=== PATIENT | female | born 1955 | race Caucasian/White ===

== ENCOUNTER → 2018-05-25 | Outpatient (CLI) | payer OTHER ==
[~2018-05-25] MED LIST: LIDOCAINE-MPF 2%, 2ML ONE
== END | disposition home or self-care (01) ==
LOC: RAD 09:51
PROVIDERS: ATTEND Internal Medicine Hematology & Oncology
DX: Z45.2 Encounter for adjustment and management of vascular access device (principal); C50.919 Malignant neoplasm of unspecified site of unspecified female breast
CPT/HCPCS: 36569; 76937; 77001; C1751; J3490

== ENCOUNTER 2018-08-12 09:19 | Inpatient (IN) | payer OTHER ==
[~2018-08-12] VITALS: Ht 160 cm; Wt 57.7 kg
[2018-08-12] MEDS ORDERED: ONDANSETRON 2MG/ML, 2ML IVPush ONE ×2 (10:30→11:30)
[2018-08-12] MEDS ORDERED: SODIUM CHLORIDE FLUSH 10ML SYR IVF ONE (10:30)
[2018-08-12] MEDS ORDERED: FAMOTIDINE 20 MG/2 ML IVP ONE (10:30)
[2018-08-12] MEDS ORDERED: SODIUM CHLORIDE 0.9% 1,000ML IVBOLUS ONE (10:30)
[2018-08-12 10:58] LABS: BASOPHILS % (AUTO) 0 % (0-1); EOSINOPHILS % (AUTO) 0 % (1-7); LYMPHOCYTES # (AUTO) 0.36 x10^3/uL (1-3.4); LYMPHOCYTES % (AUTO) 4 % (22-44); MD NO; MEAN CORPUSCULAR HEMOGLOBIN 30.6 pg (27.0-34.8); MEAN CORPUSCULAR HGB CONC 33.7 g/dL (32.4-35.8); MEAN CORPUSCULAR VOLUME 90.6 fL (80-100); MEAN PLATELET VOLUME 8.6 fL (7.4-10.4); MONOCYTES # (AUTO) 0.19 x10^3/uL (0.2-0.8); MONOCYTES % (AUTO) 2 % (2-9); NEUTROPHILS # (AUTO) 8.74 x10^3/uL (1.8-6.8); NEUTROPHILS % (AUTO) 94 % (42-75); PLATELET COUNT 158 x10^3/uL (130-400); RED BLOOD COUNT 3.24 x10^6/uL (3.82-5.3); RED CELL DISTRIBUTION WIDTH 14.1 % (9.6-15.2)
[2018-08-12 11:10] LABS: ALANINE AMINOTRANSFERASE 54 U/L (12-78); ALBUMIN 2.8 g/dL (3.4-5.0); ANION GAP 9 mmol/L (5-15); CALCIUM 8.2 mg/dL (8.5-10.1); CHLORIDE 108 mmol/L (98-107); CREATININE 0.95 mg/dL (0.55-1.02)
[2018-08-12 11:12] LABS: ALKALINE PHOSPHATASE 213 U/L (45-117); BILIRUBIN,TOTAL 0.5 mg/dL (0.2-1.0); TOTAL PROTEIN 6.8 g/dL (6.4-8.2)
[2018-08-12] MEDS ORDERED: FAMOTIDINE 20 MG/2 ML ONE (11:14)
[2018-08-12] MEDS ORDERED: ONDANSETRON 2MG/ML, 2ML ONE (11:14)
[2018-08-12] MEDS ORDERED: OMNIPAQUE 350 MG/ML, 100ML BOTTLE ONE (13:02)
[2018-08-12] MEDS ORDERED: PROMETHAZINE 25 MG/ML, 1ML ONE (13:26)
[2018-08-12] MEDS ORDERED: PROMETHAZINE 25 MG/ML, 1ML IM ONE (13:30)
[2018-08-12] MEDS ORDERED: SODIUM CHLORIDE 0.9% 1,000 ML IV ONE (14:24)
[2018-08-12] MEDS ORDERED: ONDANSETRON 2MG/ML, 2ML IVPush PRN (14:30)
[2018-08-12] MEDS ORDERED: SODIUM CHLORIDE 0.9% 1,000 ML IV SCH (15:04)
[2018-08-12] MEDS ORDERED: FENT-58 TD (15:20)
[2018-08-12] MEDS ORDERED: ENALAPRILAT 1.25 MG/ML, 2ML IVPush PRN (15:30)
[2018-08-12] MEDS ORDERED: HYDROcodone/APAP 5/325 TABLET PO PRN (15:30)
[2018-08-12] MEDS ORDERED: LABETALOL 5MG/ML, 20ML IVPush PRN (15:30)
[2018-08-12] MEDS ORDERED: DOCUSATE 100 MG CAPSULE PO PRN (15:30)
[2018-08-12] MEDS ORDERED: BISACODYL 10 MG SUPP PR PRN (15:30)
[2018-08-12] MEDS ORDERED: morphine SULFATE 10 MG/ML, 1ML IVPush PRN (15:30)
[2018-08-12] MEDS ORDERED: LIDODERM 5% PATCH TD PRN (15:30)
[2018-08-12] MEDS ORDERED: ACETAMINOPHEN 325 MG TABLET PO PRN (15:30)
[2018-08-12] MEDS ORDERED: ONDANSETRON ODT 4 MG PO PRN (15:30)
[2018-08-12 15:40] LABS: IRON LEVEL 99 mcg/dL (50-170)
[2018-08-12 15:42] LABS: % IRON SATURATION 40 % (20-55); TOTAL IRON BINDING CAPACITY 245 mcg/dL (250-450)
[2018-08-12 15:57] VITALS: BP 157/77
[2018-08-12] MEDS ORDERED: UBID100C41 PO (17:34)
[2018-08-12] MEDS ORDERED: [UNRECOGNIZED DRUG - OTHER] PO (17:37)
[2018-08-12] MEDS ORDERED: [UNRECOGNIZED DRUG - OTHER] PO (17:39)
[2018-08-12] MEDS ORDERED: ASCORBIC ACID PO (17:41)
[2018-08-12] MEDS ORDERED: [UNRECOGNIZED DRUG - OTHER] PO (17:41)
[2018-08-12] MEDS ORDERED: [UNRECOGNIZED DRUG - CODE] PO (17:43)
[2018-08-12] MEDS ORDERED: [UNRECOGNIZED DRUG - OTHER] PO (17:45)
[2018-08-12] MEDS ORDERED: [UNRECOGNIZED DRUG - OTHER] PO (17:45)
[2018-08-12] MEDS ORDERED: C STATIN PO (17:47)
[2018-08-12] MEDS ORDERED: [UNRECOGNIZED DRUG - OTHER] PO (17:47)
[2018-08-12] MEDS ORDERED: [UNRECOGNIZED DRUG - CODE] PO (17:49)
[2018-08-12] MEDS ORDERED: [UNRECOGNIZED DRUG - CODE] PO (17:50)
[2018-08-12] MEDS ORDERED: [UNRECOGNIZED DRUG - OTHER] PO (17:52)
[2018-08-12] MEDS ORDERED: [UNRECOGNIZED DRUG - OTHER] PO (17:54)
[2018-08-12] MEDS ORDERED: AHCC PO (17:56)
[2018-08-12] MEDS ORDERED: [UNRECOGNIZED DRUG - OTHER] PO (17:57)
[2018-08-12] MEDS ORDERED: APIGENIN PO (17:58)
[2018-08-12] MEDS ORDERED: [UNRECOGNIZED DRUG - OTHER] PO (17:59)
[2018-08-12] MEDS: ENOXAPARIN 40 MG/0.4 ML SQ SCH ×2 (19:30→21:25)
[2018-08-12] MEDS: KETOROLAC 30 MG/1 ML IV PRN (21:24)
[2018-08-12 21:30] VITALS: BP 138/73
[2018-08-13 01:29] VITALS: BP 115/61
[2018-08-13] MEDS: PROMETHAZINE 25 MG/ML, 1ML IM PRN (02:43)
[2018-08-13] MEDS: ONDANSETRON 2MG/ML, 2ML IVPush PRN ×3 (05:07→16:46)
[2018-08-13 05:23] LABS: BASOPHILS # (AUTO) 0.02 x10^3/uL (0-0.1); BASOPHILS % (AUTO) 0 % (0-1); EOSINOPHILS % (AUTO) 0 % (1-7); LYMPHOCYTES # (AUTO) 0.61 x10^3/uL (1-3.4); LYMPHOCYTES % (AUTO) 6 % (22-44); MD NO; MEAN CORPUSCULAR HEMOGLOBIN 30.2 pg (27.0-34.8); MEAN CORPUSCULAR HGB CONC 33.4 g/dL (32.4-35.8); MEAN CORPUSCULAR VOLUME 90.3 fL (80-100); MEAN PLATELET VOLUME 8.8 fL (7.4-10.4); MONOCYTES # (AUTO) 0.08 x10^3/uL (0.2-0.8); MONOCYTES % (AUTO) 1 % (2-9); NEUTROPHILS # (AUTO) 9.09 x10^3/uL (1.8-6.8); NEUTROPHILS % (AUTO) 93 % (42-75); PLATELET COUNT 137 x10^3/uL (130-400); RED BLOOD COUNT 2.96 x10^6/uL (3.82-5.3); RED CELL DISTRIBUTION WIDTH 14.2 % (9.6-15.2)
[2018-08-13 05:28] LABS: ALANINE AMINOTRANSFERASE 68 U/L (12-78); ALBUMIN 2.4 g/dL (3.4-5.0); ANION GAP 8 mmol/L (5-15); CHLORIDE 109 mmol/L (98-107)
[2018-08-13 05:31] LABS: ALKALINE PHOSPHATASE 181 U/L (45-117); BILIRUBIN,TOTAL 0.5 mg/dL (0.2-1.0); TOTAL PROTEIN 6.1 g/dL (6.4-8.2)
[2018-08-13] MEDS: SODIUM CHLORIDE 0.9% 1,000 ML IV SCH ×2 (06:06→16:47)
[2018-08-13 07:25] VITALS: BP 128/69
[2018-08-13] MEDS: FUROSEMIDE 20 MG TABLET PO SCH (09:32)
[2018-08-13] MEDS: SENNA/DOCUSATE TABLET PO SCH (09:32)
[2018-08-13] MEDS: KETOROLAC 30 MG/1 ML IV PRN ×2 (09:32→16:46)
[2018-08-13] MEDS: SPIRONOLACTONE 25 MG TABLET PO SCH (09:33)
[2018-08-13 10:51] LABS: CULTURE INDICATED? NO; MICROSCOPIC NOT IND
[2018-08-13] MEDS: ENOXAPARIN 40 MG/0.4 ML SQ SCH (15:30)
[2018-08-13 17:15] VITALS: BP 108/57
[2018-08-13 19:44] VITALS: BP 117/69
[2018-08-14] MEDS: ONDANSETRON 2MG/ML, 2ML IVPush PRN ×4 (00:11→19:56)
[2018-08-14] MEDS: KETOROLAC 30 MG/1 ML IV PRN ×4 (00:12→19:56)
[2018-08-14 01:29] VITALS: BP 112/61
[2018-08-14] MEDS: SODIUM CHLORIDE 0.9% 1,000 ML IV SCH ×3 (02:23→21:49)
[2018-08-14 04:26] LABS: BASOPHILS # (AUTO) 0.01 x10^3/uL (0-0.1); BASOPHILS % (AUTO) 0 % (0-1); EOSINOPHILS # (AUTO) 0.14 x10^3/uL (0-0.4); EOSINOPHILS % (AUTO) 2 % (1-7); LYMPHOCYTES # (AUTO) 0.66 x10^3/uL (1-3.4); LYMPHOCYTES % (AUTO) 9 % (22-44); MD NO; MEAN CORPUSCULAR HEMOGLOBIN 30.4 pg (27.0-34.8); MEAN CORPUSCULAR HGB CONC 33.6 g/dL (32.4-35.8); MEAN CORPUSCULAR VOLUME 90.4 fL (80-100); MEAN PLATELET VOLUME 8.4 fL (7.4-10.4); MONOCYTES # (AUTO) 0.11 x10^3/uL (0.2-0.8); MONOCYTES % (AUTO) 2 % (2-9); NEUTROPHILS # (AUTO) 6.61 x10^3/uL (1.8-6.8); NEUTROPHILS % (AUTO) 88 % (42-75); PLATELET COUNT 161 x10^3/uL (130-400); RED BLOOD COUNT 3.01 x10^6/uL (3.82-5.3); RED CELL DISTRIBUTION WIDTH 13.8 % (9.6-15.2)
[2018-08-14 07:30] VITALS: BP 128/49
[2018-08-14] MEDS: FUROSEMIDE 20 MG TABLET PO SCH (07:53)
[2018-08-14] MEDS: SENNA/DOCUSATE TABLET PO SCH (07:53)
[2018-08-14] MEDS: SPIRONOLACTONE 25 MG TABLET PO SCH (07:53)
[2018-08-14] MEDS ORDERED: FENTANYL REMOVE PATCH NOTE XX SCH (08:59)
[2018-08-14] MEDS ORDERED: FENTANYL 25 MCG PATCH TD SCH (09:00)
[2018-08-14] MEDS ORDERED: FENTANYL 12 MCG PATCH ONE (10:33)
[2018-08-14] MEDS: FLUTICASONE NASAL SPRAY 16GM NAS SCH ×2 (10:35→19:59)
[2018-08-14] MEDS ORDERED: FENTANYL 12 MCG PATCH TD SCH (11:00)
[2018-08-14] MEDS: PANTOPROZOLE 40MG TABLET PO SCH ×2 (11:48→21:49)
[2018-08-14] MEDS: ENOXAPARIN 40 MG/0.4 ML SQ SCH ×2 (14:09→14:59)
[2018-08-14 14:54] VITALS: BP 127/68
[2018-08-14] MEDS: PROMETHAZINE 25 MG/ML, 1ML IM PRN (18:18)
[2018-08-14 18:50] VITALS: BP 114/69
[2018-08-15 00:29] VITALS: BP 111/61
[2018-08-15] MEDS: ONDANSETRON 2MG/ML, 2ML IVPush PRN ×4 (02:05→21:22)
[2018-08-15] MEDS: KETOROLAC 30 MG/1 ML IV PRN ×4 (02:05→21:22)
[2018-08-15 07:24] VITALS: BP 145/77
[2018-08-15] MEDS: SODIUM CHLORIDE 0.9% 1,000 ML IV SCH ×2 (07:31→17:14)
[2018-08-15] MEDS: FUROSEMIDE 20 MG TABLET PO SCH (07:41)
[2018-08-15] MEDS: FLUTICASONE NASAL SPRAY 16GM NAS SCH ×2 (07:41→21:23)
[2018-08-15] MEDS: SPIRONOLACTONE 25 MG TABLET PO SCH (07:42)
[2018-08-15] MEDS: SENNA/DOCUSATE TABLET PO SCH (07:42)
[2018-08-15] MEDS: PANTOPROZOLE 40MG TABLET PO SCH ×2 (07:42→21:22)
[2018-08-15] MEDS: METOCLOPRAMIDE 10MG TABLET PO SCH ×2 (11:02→16:19)
[2018-08-15] MEDS ORDERED: CALCIUM CARBONATE 500 MG TAB.CHEW ONE (12:25)
[2018-08-15] MEDS ORDERED: CALCIUM CARBONATE 500 MG TAB.CHEW PO PRN (12:30)
[2018-08-15 13:28] VITALS: BP 138/76
[2018-08-15] MEDS: ENOXAPARIN 40 MG/0.4 ML SQ SCH (15:22)
[2018-08-15] MEDS ORDERED: DIPHENHYDRAMINE 25 MG CAPSULE PO PRN (16:00)
[2018-08-15] MEDS: TRIAMCINOLONE CRM 0.1%, 15GM TP SCH ×2 (16:19→21:23)
[2018-08-15 19:26] VITALS: BP 120/64
[2018-08-16 00:28] VITALS: BP 124/72
[2018-08-16] MEDS: SODIUM CHLORIDE 0.9% 1,000 ML IV SCH ×2 (02:49→15:51)
[2018-08-16] MEDS: KETOROLAC 30 MG/1 ML IV PRN (03:17)
[2018-08-16] MEDS: ONDANSETRON 2MG/ML, 2ML IVPush PRN (03:17)
[2018-08-16 04:53] LABS: ALBUMIN 2.2 g/dL (3.4-5.0); ANION GAP 9 mmol/L (5-15); CALCIUM 7.8 mg/dL (8.5-10.1); CHLORIDE 110 mmol/L (98-107)
[2018-08-16 04:55] LABS: MEAN CORPUSCULAR HEMOGLOBIN 30.2 pg (27.0-34.8); MEAN CORPUSCULAR HGB CONC 33.9 g/dL (32.4-35.8); MEAN CORPUSCULAR VOLUME 89.2 fL (80-100); PLATELET COUNT 160 x10^3/uL (130-400); RED BLOOD COUNT 3.32 x10^6/uL (3.82-5.3)
[2018-08-16 05:00] LABS: ALANINE AMINOTRANSFERASE 71 U/L (12-78); ALKALINE PHOSPHATASE 200 U/L (45-117); BILIRUBIN,TOTAL 0.3 mg/dL (0.2-1.0); CREATININE 1.13 mg/dL (0.55-1.02); PREALBUMIN 7.2 mg/dL (20.0-40.0)
[2018-08-16 05:09] LABS: BASOPHILS # (AUTO) 0.01 x10^3/uL (0-0.1); BASOPHILS % (AUTO) 0 % (0-1); EOSINOPHILS # (AUTO) 0.05 x10^3/uL (0-0.4); EOSINOPHILS % (AUTO) 1 % (1-7); LYMPHOCYTES # (AUTO) 0.48 x10^3/uL (1-3.4); LYMPHOCYTES % (AUTO) 14 % (22-44); MD SCAN; MONOCYTES # (AUTO) 0.23 x10^3/uL (0.2-0.8); MONOCYTES % (AUTO) 7 % (2-9); NEUTROPHILS # (AUTO) 2.61 x10^3/uL (1.8-6.8); NEUTROPHILS % (AUTO) 77 % (42-75)
[2018-08-16] MEDS ORDERED: MAGNESIUM SULFATE PMX 2GM/50ML 50 ML IV ONE (07:00)
[2018-08-16] MEDS ORDERED: POTASSIUM CHLORIDE 20 MEQ TAB.ER.PRT PO ONE (07:00)
[2018-08-16 07:16] VITALS: BP 146/77
[2018-08-16] MEDS: PANTOPROZOLE 40MG TABLET PO SCH (08:47)
[2018-08-16] MEDS: FUROSEMIDE 20 MG TABLET PO SCH (08:48)
[2018-08-16] MEDS: SPIRONOLACTONE 25 MG TABLET PO SCH (08:48)
[2018-08-16] MEDS: SENNA/DOCUSATE TABLET PO SCH (08:48)
[2018-08-16] MEDS: TRIAMCINOLONE CRM 0.1%, 15GM TP SCH ×2 (08:48→15:51)
[2018-08-16] MEDS: FLUTICASONE NASAL SPRAY 16GM NAS SCH (08:50)
[2018-08-16] MEDS ORDERED: LORazepam INTENSOL 2 MG/ML PO PRN (10:00)
[2018-08-16] MEDS ORDERED: SODIUM CHLORIDE 0.9% 1,000ML IVBOLUS PRN (10:00)
[2018-08-16] MEDS: METOCLOPRAMIDE 10MG TABLET PO SCH ×2 (10:13→15:50)
[2018-08-16 13:06] VITALS: BP 149/86
[2018-08-16] MEDS ORDERED: METO10TA2 PO (14:59)
[2018-08-16] MEDS ORDERED: TRIA15CR3 TP (14:59)
[2018-08-16] MEDS ORDERED: FENT1PAT74 TD (14:59)
[2018-08-16] MEDS ORDERED: ONDA4TAB13 PO (14:59)
[2018-08-16] MEDS ORDERED: PANT40TA5 PO (14:59)
[2018-08-16] MEDS: ENOXAPARIN 40 MG/0.4 ML SQ SCH (15:50)
[2018-08-17] MEDS ORDERED: FENTANYL 25 MCG PATCH TD SCH (09:00)
[2018-08-17] MEDS ORDERED: FENTANYL 12 MCG PATCH TD SCH (09:00)
== END 2018-08-16 16:00 | disposition home or self-care (01) | DRG 392 ==
LOC: ED 10:29 → EDIP 14:24 → 3NE 14:57 → 3NW 22:26
PROVIDERS: ADMIT Internal Medicine; ATTEND Internal Medicine
DX: R11.2 Nausea with vomiting, unspecified (principal); J90 Pleural effusion, not elsewhere classified; J98.11 Atelectasis; N13.30 Unspecified hydronephrosis; C79.51 Secondary malignant neoplasm of bone; C78.7 Secondary malignant neoplasm of liver and intrahepatic bile duct; C79.89 Secondary malignant neoplasm of other specified sites; N17.9 Acute kidney failure, unspecified; D64.9 Anemia, unspecified; E86.0 Dehydration; E87.8 Other disorders of electrolyte and fluid balance, not elsewhere classified; G89.3 Neoplasm related pain (acute) (chronic); I70.0 Atherosclerosis of aorta; K29.70 Gastritis, unspecified, without bleeding; K31.84 Gastroparesis; L27.0 Generalized skin eruption due to drugs and medicaments taken internally; M81.0 Age-related osteoporosis without current pathological fracture; R13.10 Dysphagia, unspecified; R62.7 Adult failure to thrive; R63.3 Feeding difficulties; Z66 Do not resuscitate; Z80.3 Family history of malignant neoplasm of breast; Z80.8 Family history of malignant neoplasm of other organs or systems; Z82.49 Family history of ischemic heart disease and other diseases of the circulatory system; Z85.3 Personal history of malignant neoplasm of breast; C50.919 Malignant neoplasm of unspecified site of unspecified female breast
CPT/HCPCS: 36415; 74022; 74241; 99285; J3490; 74177; 80053; 81003; 83540; 83550; 83690; 83735; 84100; 84134; 85025; 96361; 96372; 96374; 96375; G0378; J1650; J1885; J2405; J2550; Q9967; J3475; J7030; Q0163

== ENCOUNTER 2018-08-18 18:00 | Inpatient (IN) | payer OTHER ==
[~2018-08-18] VITALS: Ht 160 cm; Wt 56.6 kg
[~2018-08-18 18:00] MED LIST changes: +AHCC PO; +APIGENIN PO; +ASCORBIC ACID PO; +C STATIN PO; +FENT-58 TD; +FENT1PAT74 TD; -LIDOCAINE-MPF 2%, 2ML ONE; +METO10TA2 PO; +ONDA4TAB13 PO; +PANT40TA5 PO; +TRIA15CR3 TP; +UBID100C41 PO; +[UNRECOGNIZED DRUG - CODE] PO; +[UNRECOGNIZED DRUG - CODE] PO; +[UNRECOGNIZED DRUG - CODE] PO; +[UNRECOGNIZED DRUG - OTHER] PO; +[UNRECOGNIZED DRUG - OTHER] PO; +[UNRECOGNIZED DRUG - OTHER] PO; +[UNRECOGNIZED DRUG - OTHER] PO; +[UNRECOGNIZED DRUG - OTHER] PO; +[UNRECOGNIZED DRUG - OTHER] PO; +[UNRECOGNIZED DRUG - OTHER] PO; +[UNRECOGNIZED DRUG - OTHER] PO; +[UNRECOGNIZED DRUG - OTHER] PO; +[UNRECOGNIZED DRUG - OTHER] PO
[2018-08-18] MEDS ORDERED: ONDANSETRON ODT 4 MG PO ONE (18:30)
[2018-08-18] MEDS ORDERED: SODIUM CHLORIDE 0.9% 1,000 ML IV ONE (18:54)
[2018-08-18] MEDS ORDERED: MORPHINE SULFATE 4 MG/ML, 1ML IVPush PRN (19:00)
[2018-08-18] MEDS ORDERED: METOCLOPRAMIDE 5 MG/ML, 2ML IVPush ONE (19:00)
[2018-08-18] MEDS ORDERED: PROMETHAZINE 25 MG/ML, 1ML IM ONE (19:00)
[2018-08-18] MEDS ORDERED: ONDANSETRON 2MG/ML, 2ML IVPush ONE (19:00)
[2018-08-18 19:06] LABS: BASOPHILS # (AUTO) 0.01 x10^3/uL (0-0.1); BASOPHILS % (AUTO) 0 % (0-1); EOSINOPHILS # (AUTO) 0.13 x10^3/uL (0-0.4); EOSINOPHILS % (AUTO) 1 % (1-7); LYMPHOCYTES % (AUTO) 7 % (22-44); MD NO; MEAN CORPUSCULAR HEMOGLOBIN 30.7 pg (27.0-34.8); MEAN CORPUSCULAR HGB CONC 33.8 g/dL (32.4-35.8); MEAN CORPUSCULAR VOLUME 90.7 fL (80-100); MEAN PLATELET VOLUME 7.6 fL (7.4-10.4); MONOCYTES # (AUTO) 0.84 x10^3/uL (0.2-0.8); MONOCYTES % (AUTO) 9 % (2-9); NEUTROPHILS # (AUTO) 7.41 x10^3/uL (1.8-6.8); NEUTROPHILS % (AUTO) 83 % (42-75); PLATELET COUNT 163 x10^3/uL (130-400); RED BLOOD COUNT 3.28 x10^6/uL (3.82-5.3); RED CELL DISTRIBUTION WIDTH 14.1 % (9.6-15.2)
[2018-08-18 19:07] LABS: ALANINE AMINOTRANSFERASE 100 U/L (12-78); ALBUMIN 2.8 g/dL (3.4-5.0); ANION GAP 12 mmol/L (5-15); CALCIUM 8.1 mg/dL (8.5-10.1); CHLORIDE 104 mmol/L (98-107); CREATININE 0.86 mg/dL (0.55-1.02)
[2018-08-18] MEDS ORDERED: PROMETHAZINE 25 MG/ML, 1ML ONE (19:08)
[2018-08-18] MEDS ORDERED: ONDANSETRON 2MG/ML, 2ML ONE (19:08)
[2018-08-18 19:10] LABS: ALKALINE PHOSPHATASE 225 U/L (45-117); BILIRUBIN,TOTAL 0.6 mg/dL (0.2-1.0); TOTAL PROTEIN 6.7 g/dL (6.4-8.2)
[2018-08-18 20:50] VITALS: BP 161/91
[2018-08-18] MEDS ORDERED: TPN PER PHARMACY MC PRN ×2 (22:00→22:30)
[2018-08-18] MEDS: HEPARIN 5,000 UNITS/ML, 1ML SQ SCH (22:00)
[2018-08-18] MEDS ORDERED: GABAPENTIN 300 MG CAPSULE PO PRN (22:00)
[2018-08-18] MEDS ORDERED: hydrALAzine 20 MG/ML, 1ML IVPush PRN (22:00)
[2018-08-18] MEDS ORDERED: PROMETHAZINE 25 MG/ML, 1ML IM PRN (22:00)
[2018-08-18] MEDS ORDERED: LABETALOL 5MG/ML, 20ML IVPush PRN (22:00)
[2018-08-18] MEDS ORDERED: morphine SULFATE 10 MG/ML, 1ML IVPush PRN (22:00)
[2018-08-18] MEDS ORDERED: METOCLOPRAMIDE 5 MG/ML, 2ML IVPush PRN (22:00)
[2018-08-18] MEDS ORDERED: BISACODYL 10 MG SUPP PR PRN (22:00)
[2018-08-18] MEDS ORDERED: POLYETHYLENE GLYCOL 17 GM PACKET PO PRN (22:00)
[2018-08-18] MEDS ORDERED: CYCLOBENZAPRINE 10 MG TABLET PO PRN (22:00)
[2018-08-18] MEDS: D5%-0.9% NACL+KCL 20MEQ 1,000 ML IV SCH (22:18)
[2018-08-18 22:32] LABS: MICROSCOPIC INDICATED
[2018-08-18] MEDS ORDERED: FURO40TA6 PO (22:42)
[2018-08-18] MEDS ORDERED: SPIR100T PO (22:42)
[2018-08-18] MEDS ORDERED: POTA99TA24 PO (22:42)
[2018-08-18 22:43] LABS: CULTURE INDICATED? NO
[2018-08-18 22:48] LABS: FREE T4 (FREE THYROXINE) 1.15 ng/dL (0.76-1.46); THYROID STIMULATING HORMONE 3.08 mIU/L (0.358-3.740)
[2018-08-18] MEDS ORDERED: MAGN100P PO (22:48)
[2018-08-18] MEDS ORDERED: FLUT9.9S NS (22:48)
[2018-08-18 22:58] LABS: HEMOGLOBIN A1C 5.4 % (4.2-6.3)
[2018-08-19 03:30] VITALS: BP 156/81
[2018-08-19] MEDS: ONDANSETRON 2MG/ML, 2ML IVPush PRN (04:48)
[2018-08-19] MEDS: OXYcodone IR 5MG TABLET PO PRN ×3 (04:49→21:31)
[2018-08-19 04:53] LABS: BASOPHILS % (AUTO) 0 % (0-1); EOSINOPHILS # (AUTO) 0.26 x10^3/uL (0-0.4); EOSINOPHILS % (AUTO) 4 % (1-7); LYMPHOCYTES # (AUTO) 0.63 x10^3/uL (1-3.4); LYMPHOCYTES % (AUTO) 9 % (22-44); MD NO; MEAN CORPUSCULAR HEMOGLOBIN 30.6 pg (27.0-34.8); MEAN CORPUSCULAR HGB CONC 33.9 g/dL (32.4-35.8); MEAN CORPUSCULAR VOLUME 90.2 fL (80-100); MEAN PLATELET VOLUME 7.8 fL (7.4-10.4); MONOCYTES # (AUTO) 0.94 x10^3/uL (0.2-0.8); MONOCYTES % (AUTO) 14 % (2-9); NEUTROPHILS # (AUTO) 5.16 x10^3/uL (1.8-6.8); NEUTROPHILS % (AUTO) 74 % (42-75); PLATELET COUNT 156 x10^3/uL (130-400); RED BLOOD COUNT 2.97 x10^6/uL (3.82-5.3)
[2018-08-19 05:01] LABS: ALANINE AMINOTRANSFERASE 87 U/L (12-78); ALBUMIN 2.4 g/dL (3.4-5.0); ANION GAP 8 mmol/L (5-15); CHLORIDE 108 mmol/L (98-107)
[2018-08-19 05:04] LABS: ALKALINE PHOSPHATASE 208 U/L (45-117); BILIRUBIN,TOTAL 0.4 mg/dL (0.2-1.0); CHOL/HDL RATIO 2.4; CHOLESTEROL, TOTAL 77 mg/dL (140-239); CREATININE 0.97 mg/dL (0.55-1.02); HDL CHOL % 42 % (28-40); HDL CHOLESTEROL (DIRECT) 32 mg/dL (40-60); LDL CHOLESTEROL,CALCULATED 32 mg/dL (54-169); TOTAL PROTEIN 5.8 g/dL (6.4-8.2); TRIGLYCERIDES 65 mg/dL (50-200); VLDL CHOLESTEROL 13 mg/dL (0-25)
[2018-08-19] MEDS: HEPARIN 5,000 UNITS/ML, 1ML SQ SCH ×3 (06:00→20:07)
[2018-08-19 06:50] VITALS: BP 149/77
[2018-08-19] MEDS: PANTOPRAZOLE 40 MG IV IVPush SCH (07:15)
[2018-08-19] MEDS: D5%-0.9% NACL+KCL 20MEQ 1,000 ML IV SCH (07:15)
[2018-08-19] MEDS: SENNA/DOCUSATE TABLET PO SCH (07:18)
[2018-08-19] MEDS ORDERED: TPN PER PHARMACY MC PRN (08:00)
[2018-08-19] MEDS ORDERED: FENTANYL 12 MCG PATCH TD SCH (09:30)
[2018-08-19] MEDS: SPIRONOLACTONE 100 MG TABLET PO SCH (10:08)
[2018-08-19] MEDS: INSULIN LISPRO 100 UNITS/ML, PEN SQ-INSULIN SCH ×3 (10:09→20:07)
[2018-08-19] MEDS: TRIAMCINOLONE CRM 0.1%, 15GM TP SCH ×3 (10:09→20:07)
[2018-08-19] MEDS: MAGNESIUM CITRATE 100 MG PO SCH ×2 (10:10→10:18)
[2018-08-19] MEDS: POTASSIUM GLUCONATE PO SCH ×2 (10:10→10:18)
[2018-08-19] MEDS ORDERED: FUROSEMIDE 20 MG TABLET PO SCH (11:00)
[2018-08-19 13:32] VITALS: BP 144/89
[2018-08-19] MEDS: PROMETHAZINE 25MG TABLET PO PRN (14:39)
[2018-08-19] MEDS ORDERED: DEXTROSE 50%, 50ML SYRINGE IVPush PRN (17:00)
[2018-08-19] MEDS ORDERED: FILTER, DISP 1.2 MICRON FOR TPN/PVN IV PRN (17:00)
[2018-08-19] MEDS ORDERED: DEXTROSE 10% 500 ML IV PRN (17:00)
[2018-08-19] MEDS ORDERED: AMINO ACID 10% 750 ML, DEXTROSE 70% 350 ML, FAT EMUL/SMOF TPN 200 ML, STERILE WATER 1,0... IV SCH (17:00)
[2018-08-19] MEDS ORDERED: D5%-0.45% NACL 1,000 ML IV PRN (17:00)
[2018-08-19 19:06] VITALS: BP 157/88
[2018-08-20 00:44] VITALS: BP 162/94
[2018-08-20 01:45] VITALS: BP 136/85
[2018-08-20] MEDS: ONDANSETRON 2MG/ML, 2ML IVPush PRN ×3 (01:54→21:58)
[2018-08-20] MEDS: HEPARIN 5,000 UNITS/ML, 1ML SQ SCH ×3 (05:42→21:51)
[2018-08-20] MEDS: PROMETHAZINE 25MG TABLET PO PRN ×3 (05:54→20:52)
[2018-08-20 05:56] LABS: MEAN CORPUSCULAR HEMOGLOBIN 29.9 pg (27.0-34.8); MEAN CORPUSCULAR HGB CONC 33.1 g/dL (32.4-35.8); MEAN CORPUSCULAR VOLUME 90.4 fL (80-100); MEAN PLATELET VOLUME 8.4 fL (7.4-10.4); PLATELET COUNT 151 x10^3/uL (130-400); RED BLOOD COUNT 3.08 x10^6/uL (3.82-5.3); RED CELL DISTRIBUTION WIDTH 14.3 % (9.6-15.2)
[2018-08-20 06:01] LABS: CHLORIDE 104 mmol/L (98-107)
[2018-08-20 06:23] LABS: ALANINE AMINOTRANSFERASE 72 U/L (12-78); ALBUMIN 2.2 g/dL (3.4-5.0); ALKALINE PHOSPHATASE 239 U/L (45-117); ANION GAP 9 mmol/L (5-15); BILIRUBIN,TOTAL 0.3 mg/dL (0.2-1.0); CALCIUM 7.8 mg/dL (8.5-10.1); CREATININE 0.93 mg/dL (0.55-1.02); PREALBUMIN 6.6 mg/dL (20.0-40.0); TOTAL PROTEIN 5.6 g/dL (6.4-8.2)
[2018-08-20 06:53] LABS: MD YES
[2018-08-20 06:55] LABS: <PLATELET ESTIMATE> ADEQUATE; <PLT MORPHOLOGY> NORMAL PLT MORPH; ANISOCYTOSIS 1+; BAND#(MANUAL) 0.08 x10^3/uL; BANDS%(MANUAL) 1 % (0-7); EOS% (MANUAL) 4 % (1-7); LYMPH#(MANUAL) 0.68 x10^3/uL (1-3.4); LYMPHS% (MANUAL) 9 % (22-44); MONOS#(MANUAL) 0.98 x10^3/uL (0.3-2.7); MONOS% (MANUAL) 13 % (2-9); NRBC % (MANUAL) 2 % (0-1); POLYCHROMASIA 1+; SEG#(MANUAL) 5.48 x10^3/uL (1.8-6.8); SEGS% (MANUAL) 73 % (42-75)
[2018-08-20] MEDS: INSULIN LISPRO 100 UNITS/ML, PEN SQ-INSULIN SCH ×4 (07:21→21:00)
[2018-08-20] MEDS ORDERED: METOCLOPRAMIDE 5 MG/ML, 2ML IVPush PRN (08:00)
[2018-08-20] MEDS: SENNA/DOCUSATE TABLET PO SCH (08:06)
[2018-08-20] MEDS: SPIRONOLACTONE 100 MG TABLET PO SCH (08:06)
[2018-08-20] MEDS: PANTOPRAZOLE 40 MG IV IVPush SCH (08:06)
[2018-08-20] MEDS: FUROSEMIDE 20 MG/2 ML IV SCH (08:06)
[2018-08-20] MEDS: TRIAMCINOLONE CRM 0.1%, 15GM TP SCH ×3 (08:08→21:51)
[2018-08-20 08:11] VITALS: BP 168/98
[2018-08-20] MEDS ORDERED: FENTANYL 25 MCG PATCH TD SCH (09:00)
[2018-08-20] MEDS ORDERED: FENTANYL 12 MCG PATCH TD SCH (09:00)
[2018-08-20 13:33] VITALS: BP 154/85
[2018-08-20] MEDS: ONDANSETRON ODT 4 MG PO PRN (14:59)
[2018-08-20] MEDS ORDERED: DIPHENHYDRAMINE 25 MG CAPSULE ONE (15:54)
[2018-08-20] MEDS ORDERED: AMINO ACID 10% 750 ML, DEXTROSE 70% 350 ML, FAT EMUL/SMOF TPN 200 ML, STERILE WATER 1,0... IV SCH (17:00)
[2018-08-20] MEDS ORDERED: DIPHENHYDRAMINE 25 MG CAPSULE PO ONE (17:00)
[2018-08-20] MEDS ORDERED: FILTER, DISP 1.2 MICRON FOR TPN/PVN IV PRN (17:00)
[2018-08-20 20:16] VITALS: BP 167/95
[2018-08-20] MEDS ORDERED: DEXAMETHASONE 4 MG/ML, 1ML IVPush ONE (23:00)
[2018-08-20 23:02] VITALS: BP 146/82
[2018-08-21 02:16] VITALS: BP 162/95
[2018-08-21] MEDS: HEPARIN 5,000 UNITS/ML, 1ML SQ SCH ×2 (04:34→14:00)
[2018-08-21] MEDS: ONDANSETRON 2MG/ML, 2ML IVPush PRN ×2 (04:34→12:25)
[2018-08-21 05:09] LABS: BASOPHILS % (AUTO) 0 % (0-1); EOSINOPHILS # (AUTO) 0.17 x10^3/uL (0-0.4); EOSINOPHILS % (AUTO) 2 % (1-7); LYMPHOCYTES % (AUTO) 7 % (22-44); MD NO; MEAN CORPUSCULAR HEMOGLOBIN 30.4 pg (27.0-34.8); MEAN CORPUSCULAR HGB CONC 33.4 g/dL (32.4-35.8); MEAN PLATELET VOLUME 8.6 fL (7.4-10.4); MONOCYTES # (AUTO) 0.97 x10^3/uL (0.2-0.8); MONOCYTES % (AUTO) 10 % (2-9); NEUTROPHILS # (AUTO) 8.28 x10^3/uL (1.8-6.8); NEUTROPHILS % (AUTO) 82 % (42-75); PLATELET COUNT 172 x10^3/uL (130-400); RED BLOOD COUNT 3.46 x10^6/uL (3.82-5.3); RED CELL DISTRIBUTION WIDTH 14.7 % (9.6-15.2)
[2018-08-21 05:19] LABS: ALANINE AMINOTRANSFERASE 66 U/L (12-78); ALBUMIN 2.4 g/dL (3.4-5.0); ANION GAP 7 mmol/L (5-15); CALCIUM 7.5 mg/dL (8.5-10.1); CHLORIDE 104 mmol/L (98-107)
[2018-08-21 05:21] LABS: ALKALINE PHOSPHATASE 289 U/L (45-117); BILIRUBIN,TOTAL 0.5 mg/dL (0.2-1.0); TOTAL PROTEIN 6.4 g/dL (6.4-8.2)
[2018-08-21 07:17] VITALS: BP 156/82
[2018-08-21] MEDS: INSULIN LISPRO 100 UNITS/ML, PEN SQ-INSULIN SCH ×3 (07:36→16:00)
[2018-08-21] MEDS ORDERED: PROCHLORPERAZINE 5 MG TABLET PO PRN (08:00)
[2018-08-21] MEDS ORDERED: PROCHLORPERAZINE 10MG TABLET ONE (08:57)
[2018-08-21] MEDS: SENNA/DOCUSATE TABLET PO SCH (09:02)
[2018-08-21] MEDS: TRIAMCINOLONE CRM 0.1%, 15GM TP SCH ×2 (09:02→16:10)
[2018-08-21] MEDS: SPIRONOLACTONE 100 MG TABLET PO SCH (09:03)
[2018-08-21] MEDS: FUROSEMIDE 20 MG/2 ML IV SCH (09:03)
[2018-08-21] MEDS: PANTOPRAZOLE 40 MG IV IVPush SCH (09:03)
[2018-08-21] MEDS ORDERED: GADOBUTROL 7.5 MMOL/7.5 ML PFS ONE (11:58)
[2018-08-21 12:29] VITALS: BP 149/87
[2018-08-21] MEDS ORDERED: PROC5TAB40 PO (13:29)
[2018-08-21] MEDS ORDERED: ONDA4TAB13 PO (13:29)
[2018-08-21] MEDS: ONDANSETRON ODT 4 MG PO PRN (18:15)
== END 2018-08-21 19:44 | disposition home or self-care (01) | DRG 641 ==
LOC: ED 19:39 → EDIP 19:45 → 3NW 20:27
PROVIDERS: ADMIT Internal Medicine; ATTEND Internal Medicine
PROC: 02HV33Z Insertion of Infusion Device into Superior Vena Cava, Percutaneous Approach (ICD-10-PCS; principal; 2018-08-20)
DX: E86.0 Dehydration (principal); C78.7 Secondary malignant neoplasm of liver and intrahepatic bile duct; C79.51 Secondary malignant neoplasm of bone; N13.1 Hydronephrosis with ureteral stricture, not elsewhere classified; C79.49 Secondary malignant neoplasm of other parts of nervous system; C79.31 Secondary malignant neoplasm of brain; J81.1 Chronic pulmonary edema; J90 Pleural effusion, not elsewhere classified; G89.3 Neoplasm related pain (acute) (chronic); K31.84 Gastroparesis; C50.919 Malignant neoplasm of unspecified site of unspecified female breast; D64.9 Anemia, unspecified; K29.70 Gastritis, unspecified, without bleeding; M81.0 Age-related osteoporosis without current pathological fracture; R79.89 Other specified abnormal findings of blood chemistry; Z66 Do not resuscitate; Z80.3 Family history of malignant neoplasm of breast; Z80.8 Family history of malignant neoplasm of other organs or systems; Z82.49 Family history of ischemic heart disease and other diseases of the circulatory system
CPT/HCPCS: 36415; 74021; 99285; J3475; Q0169; 70553; 71045; 80053; 80061; 81001; 82962; 83036; 83735; 84100; 84134; 84439; 84443; 85025; A9585; G0378; J0610; J1100; J1644; J2405; J2550; Q0162; C9113; J1720; J1940; J2270; J3420; J3480; J7030; Q0163; Q0164